=== PATIENT | male | born 1980 | race Caucasian/White ===

== ENCOUNTER 2021-12-01 14:26 | Emergency (ER) | payer BC, MEDICAID, SELFPAY ==
[2021-12-01 14:27] VITALS: BP 142/92; PULSE 79; RESP 16; TEMP 36.9; O2SAT 99; BMI 22.0
--- NOTE | 2021-12-01 16:15 | RAD_ITS ---
STUDY: X-RAY - LEFT WRIST REASON FOR EXAM: Male, 41 years old. injury TECHNIQUE: 3 view(s) of the wrist were obtained. COMPARISON: None. FINDINGS: No acute fracture or dislocation. No destructive bone changes. Joint spaces are well-maintained. Normal alignment. Soft tissues are unremarkable. No radiopaque foreign body or soft tissue gas. RAD/Wrist min 3 Views IMPRESSION: Normal x-ray examination of the wrist. Electronically Signed: Cathy Haskins MD at 16:58 EDT Reading Location ID and State: [id number] / Tel , Service support ,
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
[2021-12-01] MEDS: Naproxen 250 MG Tablet 500 MG PO (17:59)
== END 2021-12-01 18:00 | disposition home or self-care (01) ==
PROVIDERS: Emergency Provider Emergency Medicine; Visit Provider Emergency Medicine
DX: S63.92XA Sprain of unspecified part of left wrist and hand, initial encounter (principal); F17.210 Nicotine dependence, cigarettes, uncomplicated; X50.9XXA Other and unspecified overexertion or strenuous movements or postures, initial encounter
CPT/HCPCS: 73110; 99283